=== PATIENT | male | born 1955 | race African-American/Black ===

== ENCOUNTER 2021-06-06 05:10 | Day surgery (SDC) | payer MEDICARE ==
[2021-06-05 14:16] VITALS: BMI 29.6
[2021-06-06 17:23] VITALS: BP 145/90; PULSE 92; TEMP 97.4
== END 2021-06-06 17:25 | disposition home or self-care (01) ==
LOC: JASU-SURG 05:10
PROC: 0SRQ0JZ Replacement of Left Toe Phalangeal Joint with Synthetic Substitute, Open Approach (ICD-10-PCS; principal; 2021-06-06)
DX: M20.42 Other hammer toe(s) (acquired), left foot (principal); E11.9 Type 2 diabetes mellitus without complications; I10 Essential (primary) hypertension
CPT/HCPCS: 82962; 88304-TC; 88311-TC; 94760